=== PATIENT | female | born 1990 | race Caucasian/White ===

== ENCOUNTER → 2020-04-05 | Day surgery (SDC) | payer OTHER ==
[~2020-04-05] MED LIST: BASAGLAR K100 UNIT/1 SQ; GLIPIZIDE XL5 MG PO; IBUPROFEN800 MG PO; PERCOCET 5/325 T1 EA PO; PROTONIX40 MG PO; SULFAMETHOXAZO473 ML PO; TRANDATE 100 M100 MG PO; TRULICITY3 MG/0.5 M SQ
== END | disposition home or self-care (01) ==
LOC: OR 06:26
DX: K29.70 Gastritis, unspecified, without bleeding (principal); K44.9 Diaphragmatic hernia without obstruction or gangrene; D53.9 Nutritional anemia, unspecified; I51.7 Cardiomegaly; F41.9 Anxiety disorder, unspecified; Z82.49 Family history of ischemic heart disease and other diseases of the circulatory system; Z20.822 Contact with and (suspected) exposure to COVID-19; Z79.899 Other long term (current) drug therapy
CPT/HCPCS: 82962; 84703; J2250; J2704; J7030

== ENCOUNTER → 2020-09-26 | Day surgery (SDC) | payer OTHER ==
[2020-09-26 09:42] LABS: HEMOGLOBIN 9.9 gm/dl (12.3-15.3); RED BLOOD COUNT 4.35 M/UL (4.00-5.10); WHITE BLOOD COUNT 9.7 K/UL (4.5-11.0)
[2020-09-26 10:05] LABS: BUN/CREATININE RATIO 18 (0-10)
== END | disposition home or self-care (01) ==
LOC: OR 09:00
PROVIDERS: Obstetrics & Gynecology
DX: N84.0 Polyp of corpus uteri (principal); N93.9 Abnormal uterine and vaginal bleeding, unspecified; N92.0 Excessive and frequent menstruation with regular cycle; D50.0 Iron deficiency anemia secondary to blood loss (chronic); N94.6 Dysmenorrhea, unspecified; N97.9 Female infertility, unspecified; E11.9 Type 2 diabetes mellitus without complications; E66.9 Obesity, unspecified; Z79.4 Long term (current) use of insulin; Z79.899 Other long term (current) drug therapy; Z20.822 Contact with and (suspected) exposure to COVID-19; Z90.89 Acquired absence of other organs
CPT/HCPCS: 36415; 80053; 81001; 82962; 84702; 85025; J0690; J1100; J1170; J1885; J2001; J2250; J2405; J2704; J3010; J7030; J7120